=== PATIENT | female | born 2000 | race Caucasian/White ===

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

== ENCOUNTER 2019-01-19 20:34 | Inpatient (IN) | payer OTHER ==
[~2019-01-19] VITALS: Ht 172.7 cm; Wt 67.6 kg
[2019-01-19 20:45] VITALS: BP 120/85
--- NOTE | 2019-01-19 20:48 | NUR ---
PT AMBULATED TO BED 12.
[2019-01-19] MEDS ORDERED: NACL 0.9% 500 ML IV ONE (20:52)
[2019-01-19] MEDS ORDERED: KETOROLAC 30 MG/ML VIAL IVP ONE (20:55)
[2019-01-19] MEDS ORDERED: ONDANSETRON 4 MG/2 ML VIAL IVP ONE (20:55)
--- NOTE | 2019-01-19 21:00 | NUR ---
18/F PRESENTS TO ED WITH FAMILY, C/O BL UPPER ABD PAIN, RADIATING TO UPPER BACK, X5 HRS. PT REPORTS VOMITING X4 EPISODES. PT AWAKE AND ALERT, RESTLESS AND CRYING, RR EVEN AND SLIGHTLY LABORED. ABD SOFT FLAT TENDER TO TOUCH. HX CHOLELITHIASIS OTC PAIN MED WITHOUT RELIEF
[2019-01-19 21:13] LABS: BASOPHILS % (AUTO) 0.3 % (0.0-2.0); EOSINOPHILS % (AUTO) 0.3 % (0.0-4.0); HEMATOCRIT 41.1 % (36-48); HEMOGLOBIN 13.6 g/dL (12.0-16.0); LYMPHOCYTES # (AUTO) 2.5 K/uL (2.5-16.5); LYMPHOCYTES % (AUTO) 19.3 % (20.5-51.1); MEAN CORPUSCULAR HEMOGLOBIN 29 pg (27-31); MEAN CORPUSCULAR HGB CONC 33 g/dL (33-37); MEAN CORPUSCULAR VOLUME 86.3 fL (80-94); MONOCYTES # (AUTO) 0.8 K/uL (0.8-1.0); MONOCYTES % (AUTO) 5.9 % (1.7-9.3); NEUTROPHILS # (AUTO) 9.6 K/uL (1.8-7.7); NEUTROPHILS % (AUTO) 74.2 % (42.2-75.2); PLATELET COUNT (AUTO) 308 K/uL (140-450); RED BLOOD CELL COUNT(AUTO) 4.77 MIL/uL (4.20-5.40); RED CELL DISTRIBUTION WIDTH 13.3 % (11.6-13.7); WHITE BLOOD COUNT (AUTO) 12.9 K/uL (4.5-11.0)
[2019-01-19 21:22] LABS: ANION GAP 19.2 (8-16); CARBON DIOXIDE 23.3 mmol/L (21-32); POTASSIUM 3.5 mmol/L (3.5-5.1)
[2019-01-19 21:28] LABS: ALBUMIN 4.3 g/dL (3.4-5.0); TOTAL BILIRUBIN 0.5 mg/dL (0.0-1.0)
[2019-01-19] MEDS: LACTATED RINGERS 1,000 ML IV SCH (22:27)
[2019-01-19] MEDS ORDERED: ONDANSETRON 4 MG/2 ML VIAL IVP PRN (22:30)
[2019-01-19] MEDS ORDERED: MORPHINE SULFATE 4 MG/ML SYR IVP PRN (22:30)
[2019-01-19] MEDS ORDERED: ZOLPIDEM 5 MG TAB PO PRN (22:30)
[2019-01-19] MEDS ORDERED: LORazepam 2 MG/ML VIAL IVP PRN (22:30)
--- NOTE | 2019-01-19 22:43 | NUR ---
PT LAYING IN BED, FAMILY MEMBERS AT BEDSIDE. DENIES ANY PAIN OR NAUSEA. RR EVEN AND UNLABORED. VSS. ALL NEEDS MET.
--- NOTE | 2019-01-19 23:00 | NUR ---
Patient will be admitted to care of DR CAMPBELL. Admited to [facility]. Will go to [id number]. Belongings list completed. Report to KITTY EVANS.
[2019-01-19 23:20] VITALS: BP 110/62
--- NOTE | 2019-01-19 23:20 | NUR ---
RECIEVED PT AAOX4 FROM ER ACCOMPANIED BY ER NURSE / WHEELCHAIR , AMBULATORY TO BED , IV SITE INTACT AND PATENT , WITH BEARABLE PAIN AT THIS TIME SHE SAID .ADMISSION ASSESSMENT DONE - MRSA SPECIMEN COLLECTED AND SENT TO LAB. CALL LIGHT WITHIN REACH , BED IN LOW POSITION , SIDERAILS UP . WILL CONT. TO MONITOR.
[2019-01-20] MEDS: LEVOFLOXACIN 750 MG/D5W PREMIX 150 ML IV SCH ×2 (00:08→23:16)
[2019-01-20 07:07] LABS: BASOPHILS # (AUTO) 0.1 K/uL (0.00-0.22); BASOPHILS % (AUTO) 0.4 % (0.0-2.0); EOSINOPHILS # (AUTO) 0.1 K/uL (0-0.4); EOSINOPHILS % (AUTO) 0.5 % (0.0-4.0); HEMATOCRIT 37.9 % (36-48); HEMOGLOBIN 12.4 g/dL (12.0-16.0); LYMPHOCYTES # (AUTO) 2.5 K/uL (2.5-16.5); LYMPHOCYTES % (AUTO) 21.2 % (20.5-51.1); MEAN CORPUSCULAR HEMOGLOBIN 28 pg (27-31); MEAN CORPUSCULAR HGB CONC 33 g/dL (33-37); MEAN CORPUSCULAR VOLUME 87.3 fL (80-94); MONOCYTES # (AUTO) 1.1 K/uL (0.8-1.0); MONOCYTES % (AUTO) 9.3 % (1.7-9.3); NEUTROPHILS # (AUTO) 8.1 K/uL (1.8-7.7); NEUTROPHILS % (AUTO) 68.6 % (42.2-75.2); PLATELET COUNT (AUTO) 250 K/uL (140-450); RED BLOOD CELL COUNT(AUTO) 4.34 MIL/uL (4.20-5.40); RED CELL DISTRIBUTION WIDTH 13.3 % (11.6-13.7); WHITE BLOOD COUNT (AUTO) 11.8 K/uL (4.5-11.0)
[2019-01-20 07:37] LABS: ANION GAP 11.7 (8-16); CARBON DIOXIDE 25.4 mmol/L (21-32); POTASSIUM 4.1 mmol/L (3.5-5.1)
[2019-01-20 07:38] LABS: ALBUMIN 3.7 g/dL (3.4-5.0); CREATININE 0.8 mg/dL (0.6-1.3); TOTAL BILIRUBIN 0.7 mg/dL (0.0-1.0)
--- NOTE | 2019-01-20 07:56 | NUR ---
RECEIVED REPORT FROM SENIOR CONTROLS TECHNICIAN FOR CONTINUITY OF CARE. PT IS AAOX4, AMBULATORY. IV IN THE LEFT AC 20G. IV INFUSING WELL. PT CAN MAKE NEEDS KNOWN WELL. SKIN IS INTACT. CURRENTLY NPO. EXPLAINED PLAN OF CARE TO PT. PT VERBALIZED UNDERSTANDING. WILL ROUND FREQUENTLY ON PT. BED IN LOW POSITION, CALL LIGHT WITHIN REACH.
[2019-01-20 08:00] VITALS: BP 109/65
--- NOTE | 2019-01-20 08:19 | NUR ---
PATIENT HAS BEEN SCREENED AND CATEGORIZED MODERATE NUTRITION RISK. PATIENT WILL BE SEEN WITHIN 3-5 DAYS OF ADMISSION. 01/22/19[address]
--- NOTE | 2019-01-20 09:14 | NUR ---
PT RESTING IN BED. ALL NEEDS CURRENTLY MET. WILL CONTINUE TO ROUND FREQUENTLY ON PT.
[2019-01-20] MEDS: MORPHINE SULFATE 2 MG/ML SYR IVP PRN ×3 (10:40→20:08)
[2019-01-20] MEDS: LACTATED RINGERS 1,000 ML IV SCH ×2 (10:57→23:26)
--- NOTE | 2019-01-20 11:21 | NUR ---
PT IN NUCLEAR MEDICAINE HAVING HYDA SCAN. WILL ASSESS PT UPON RETURN.
--- NOTE | 2019-01-20 11:41 | NUR ---
PT RETURNED FROM HYDA SCAN. PT IN STABLE CONDITION AT THIS TIME
[2019-01-20] MEDS ORDERED: BUPIVACAINE-MPF/EPI 0.25% 30 ML VIAL INJ ONE (12:33)
[2019-01-20] MEDS ORDERED: DESFLURANE 240 ML BTL INH ONE (12:36)
[2019-01-20] MEDS ORDERED: DEXAMETHASONE 4 MG/ML VIAL ONE (12:36)
[2019-01-20] MEDS ORDERED: GLYCOPYRROLATE 0.2 MG/ML VIAL ONE (12:36)
[2019-01-20] MEDS ORDERED: ONDANSETRON 4 MG/2 ML VIAL ONE (12:36)
[2019-01-20] MEDS ORDERED: NEOSTIGMINE 1:1000 10 MG/10 ML VIAL ONE (12:36)
[2019-01-20] MEDS ORDERED: SUCCINYLCHOLINE CHLORIDE 200 MG/10 ML VIAL IVP ONE (12:36)
[2019-01-20] MEDS ORDERED: KETOROLAC 30 MG/ML VIAL ONE (12:36)
[2019-01-20] MEDS ORDERED: PROPOFOL 200 MG/20 ML VIAL IV ONE (12:36)
[2019-01-20] MEDS ORDERED: ROCURONIUM 50 MG/5 ML VIAL IV ONE (12:36)
--- NOTE | 2019-01-20 12:40 | NUR ---
PT TAKEN INTO OR FOR CHOLECYSTECTOMY. PT LEFT IN STABLE CONDITION.
[2019-01-20] MEDS ORDERED: fentaNYL 0.05 MG/ML VIAL ONE (12:50)
[2019-01-20] MEDS ORDERED: HYDROmorphone PFS 2 MG/ML SYR ONE (12:51)
[2019-01-20] MEDS ORDERED: HYDROmorphone 1 MG/ML AMP IVP PRN (14:05)
[2019-01-20] MEDS ORDERED: ONDANSETRON 4 MG/2 ML VIAL IVP PRN (14:05)
--- NOTE | 2019-01-20 14:20 | NUR ---
PT RETURNED FROM OR FOR CHOLECYSTECTOMY. PT TOLERATED PROCEDURE WELL. PT VITAL SIGNS STABLE. WILL CONTINUE TO MONITOR PT CLOSELY.
--- NOTE | 2019-01-20 16:31 | NUR ---
PT RESTING IN BED. ALL NEEDS CURRENTLY MET. WILL CONTINUE TO ROUND CLOSELY ON PT.
--- NOTE | 2019-01-20 18:28 | NUR ---
PT SLEEPING IN BED. ALL NEEDS MET. WILL CONTINUE TO ROUND CLOSELY ON PT.
--- NOTE | 2019-01-20 19:26 | NUR ---
RECIEVED PT. AAOX4 , NID , IV SITE INTACT , ON FULL LIQ. DIET , C/O POST OP PAIN , SURGICAL SITE INTACT AND NO SIGNS OF ACTIVE BLEEDING. VOIDED FREELY , PLAN OF CARE DISCUSSED AND VERBALIZE UNDERSTANDING , WILL CONT. TO MONITOR - CALL LIGHT WITHIN REACH.
--- NOTE | 2019-01-20 19:28 | NUR ---
ENDORSED PT TO SESSIONS CLERK FOR CONTINUITY OF CARE. PT IN STABLE CONDITION AT THIS TIME.
[2019-01-20 20:00] VITALS: BP 117/74
--- NOTE | 2019-01-21 | NUR ---
MADE ROUNDS , NO COMPLAIN MADE , CALL LIGHT WITHIN REACH.
--- NOTE | 2019-01-21 04:00 | NUR ---
MADE ROUNDS , NO COMPLAIN MADE , CALL LIGHT WITHIN REACH
--- NOTE | 2019-01-21 06:00 | NUR ---
VOIDE FREELY , NO COMPLAIN MADE , SURGICAL SITES INTACT AND DRY .
[2019-01-21 06:51] LABS: ALBUMIN 3.6 g/dL (3.4-5.0); ANION GAP 11.6 (8-16); CARBON DIOXIDE 27.8 mmol/L (21-32); CREATININE 0.8 mg/dL (0.6-1.3); POTASSIUM 4.4 mmol/L (3.5-5.1); TOTAL BILIRUBIN 1.2 mg/dL (0.0-1.0)
--- NOTE | 2019-01-21 07:18 | NUR ---
RECEIVED BEDSIDE REPORT FROM STOCKING AND BOX SHOP SUPERVISOR RN FOR CONTINUITY OF CARE FROM YESTERDAY. PT IS IN STABLE CONDITION. WILL MONITOR PT CLOSELY. ROOM ENVIRONMENT CHECK DONE. BED IN LOW POSITION, CALL LIGHT WITHIN REACH.
--- NOTE | 2019-01-21 07:28 | NUR ---
ENDORSED TO AM SHIFT FOR CONT. OF CARE.
[2019-01-21 07:44] LABS: BASOPHILS % (AUTO) 0.1 % (0.0-2.0); EOSINOPHILS % (AUTO) 0.1 % (0.0-4.0); HEMATOCRIT 39.6 % (36-48); HEMOGLOBIN 12.9 g/dL (12.0-16.0); LYMPHOCYTES % (AUTO) 15.1 % (20.5-51.1); MEAN CORPUSCULAR HEMOGLOBIN 28 pg (27-31); MEAN CORPUSCULAR HGB CONC 33 g/dL (33-37); MEAN CORPUSCULAR VOLUME 86.9 fL (80-94); MONOCYTES % (AUTO) 7.2 % (1.7-9.3); NEUTROPHILS # (AUTO) 10.4 K/uL (1.8-7.7); NEUTROPHILS % (AUTO) 77.5 % (42.2-75.2); PLATELET COUNT (AUTO) 267 K/uL (140-450); RED BLOOD CELL COUNT(AUTO) 4.56 MIL/uL (4.20-5.40); RED CELL DISTRIBUTION WIDTH 13.1 % (11.6-13.7); WHITE BLOOD COUNT (AUTO) 13.4 K/uL (4.5-11.0)
[2019-01-21 08:00] VITALS: BP 111/71
--- NOTE | 2019-01-21 09:00 | NUR ---
CONTACTED PATIENT'S PCP OFFICE DR. JOHNNIE NOEL AT [phone] TO SET UP POST DISCHARGE VISIT, ABLE TO SPEAK TO NAKUL. SHE STATED THAT PATIENT IS ABLE TO WALK IN [place] FROM 8 AM. COPY PROVIDED TO THE PATIENT.
--- NOTE | 2019-01-21 09:21 | NUR ---
PT RESTING IN BED WITH FAMILY AT BEDSIDE. PT DENIES PAIN OR DISTRESS. WILL CONTINUE TO MONITOR PT CLOSELY.
--- NOTE | 2019-01-21 09:39 | NUR ---
PT GIVEN ZOFRAN FOR NAUSEA/VOMITING. TOLERATING WELL. WILL CONTINUE TO ROUND FREQUENTLY ON PT.
[2019-01-21] MEDS: MORPHINE SULFATE 2 MG/ML SYR IVP PRN (10:31)
--- NOTE | 2019-01-21 11:47 | NUR ---
PT RESTING IN BED. PAIN MEDICATION GIVEN. WILL REASSESS PAIN MED EFFECTIVENESS.
[2019-01-21] MEDS: LACTATED RINGERS 1,000 ML IV SCH (12:50)
--- NOTE | 2019-01-21 13:15 | NUR ---
PT RESTING IN BED HAVING LUNCH. TOLERATING MEAL WELL SO FAR. WILL CONTINUE TO ROUND ON PT.
--- NOTE | 2019-01-21 15:47 | NUR ---
PT RESTING IN BED WITH FAMILY AT BEDSIDE. PT IN STABLE CONDITION AT THIS TIME.
[2019-01-21 16:00] VITALS: BP 105/56
--- NOTE | 2019-01-21 17:35 | NUR ---
PT RESTING IN BED AWAITING D/C. PT IN STABLE CONDITION. PARENTS AT BEDSIDE. WILL CONTINUE TO ROUND ON PT.
--- NOTE | 2019-01-21 18:55 | NUR ---
PT DISCHARGED HOME FOR SELF CARE. PT IV REMOVED WITH TIP INTACT. ALL PERSONAL BELONGINGS TAKEN HOME WITH PT. PT SIGNED ALL DISCHARGE PAPERWORK. PT VERBALIZED UNDERSTANDING OF TEACHING. PT LEFT IN STABLE CONDITION ACCOMPANIED BY PARENTS.
== END 2019-01-21 19:00 | disposition home or self-care (01) | DRG 263 ==
LOC: MED 20:34 → MMU 22:31 → MTU 23:03
PROVIDERS: ADMIT Internal Medicine; ATTEND Internal Medicine
PROC: 0FT44ZZ Resection of Gallbladder, Percutaneous Endoscopic Approach (ICD-10-PCS; principal; 2019-01-20 13:15)
DX: K80.12 Calculus of gallbladder with acute and chronic cholecystitis without obstruction (principal); F12.90 Cannabis use, unspecified, uncomplicated; K82.8 Other specified diseases of gallbladder
CPT/HCPCS: 36415; 76705; 78445; 80053; 82374; 83690; 83735; 85025; 86886; 86900; 86901; 87081; 88304; 96361; 96374; 96375; 99285; J0330; J1100; J1170; J1885; J1956; J2270; J2405; J2704; J2710; J3010; J3490; J7030; J7120; Q0092